=== PATIENT | female | born 1950 | race Caucasian/White ===

== ENCOUNTER 2023-09-26 14:46 | Emergency (ER) | payer MEDICARE, OTHER, SELFPAY ==
[2023-09-26 15:10] VITALS: BP 141/61; PULSE 60; RESP 18; TEMP 36.6; O2SAT 100
--- NOTE | 2023-09-26 15:19 | ED.SKABFB ---
HPI - Skin/Abscess/Foreign Bdy General Chief complaint: Skin/Abscess/Foreign Body Stated complaint: Poss yeast infection Time Seen by Provider: 09/26/23 15:19 Source: patient, RN notes reviewed and old records reviewed Mode of arrival: ambulatory Limitations: no limitations History of Present Illness HPI narrative: 73 year old female presents to express care with complaints of rash to bilateral groin areas that is red and tissue irritated with some itching and stinging burning sensation to the tissue for the past 4 days. Patient reports that the left side is worse that the right side. Patient is concerned because she is suppose to have total knee replacement on the 16 of October. Patient has not applied any OTC ointment to rash area. MD complaint: rash Onset (ago): day(s) (4) Location: genitals (bilateral groins) Severity scale (1-10): 7 Quality: burning and pruritic Treatments prior to arrival: none Related Data Home Medications Medication Instructions Recorded Confirmed benzonatate 100 mg capsule See Rx Instructions .Route .COMPLEX 09/26/23 09/26/23 celecoxib 100 mg capsule See Rx Instructions .Route .COMPLEX 09/26/23 09/26/23 escitalopram oxalate 10 mg tablet See Rx Instructions .Route .COMPLEX 09/26/23 09/26/23 famotidine 40 mg tablet 40 mg PO DAILY 09/26/23 09/26/23 hydrochlorothiazide 12.5 mg capsule 12.5 mg PO DAILY 09/26/23 09/26/23 losartan 100 mg tablet 100 mg PO DAILY 09/26/23 09/26/23 pantoprazole 40 mg tablet,delayed 40 mg PO DAILY 09/26/23 09/26/23 release tramadol 50 mg tablet See Rx Instructions .Route 09/26/23 09/26/23 .COMPLEX PRN Pain Review of Systems Review of Systems: CONSTITUTIONAL: Denies fever, chills, or sweats. CARDIOVASCULAR: Denies chest pain, palpitations, or edema. RESPIRATORY: Denies cough or dyspnea. SKIN: Reports red irritated skin to bilateral groin area that is itchy and alvarez MUSCULOSKELETAL: Denies joint pain or myalgia. NEUROLOGIC: Denies headache, numbness, or weakness. All systems reviewed & are unremarkable except as noted in HPI and below PMFSH Past Medical History Medical History (Updated 09/29/23 @ 12:08 by Danna De Dios NP) Anxiety Arthritis GERD (gastroesophageal reflux disease) Hyperlipidemia Hypertension Surgical History Surgical History (Updated 09/29/23 @ 12:00 by Danna De Dios NP) H/O skin graft multiple to legs following alvarez Social History Social History (Updated 09/29/23 @ 12:01 by Danna De Dios NP) Smoking status: Never smoker Alcohol intake: current Alcohol use details: rare social Substance use type: does not use Gender identity (if verbalized by the patient): Female Comments At time of signature, agree with nursing past medical, surgical, social and family history. There is no relevant family history pertinent to the presenting complaint Exam Narrative: GENERAL: Well-appearing, well-nourished, and in no acute distress. HEAD: Normocephalic, atraumatic. EYES: PERRLA, conjunctivae clear, and EOMI. ENT: Mucous membranes moist. Oropharynx without edema, erythema or lesions. NECK: Supple. No lymphadenopathy CHEST: Clear to auscultation. No respiratory distress.SAO2 100% on room air HEART: Regular rate and rhythm. SKIN: Warm, dry.? Patches of irregular red erythema with itching in groin areas with left greater that right,some burning reported no vesicles NEURO:? Alert and oriented x3. PSYCH: Normal mood and affect Course Course Emergency Course: Patient is aware of diagnosis, understands and agrees to treatment plan.? Anticipatory guidance given.? Patient agrees to follow-up as directed and is aware of reasons to seek care at the emergency department. Portions of this record may have been created with voice recognition software Level of Care: Express Care Visit Vital Signs Vital signs: Vital Signs Temperature 36.6 C 09/26/23 15:10 Pulse Rate 60 09/26/23 15:10 Respirator
== END 2023-09-26 15:35 | disposition home or self-care (01) ==
PROVIDERS: Emergency Provider Registered Nurse
DX: B37.2 Candidiasis of skin and nail (principal); K21.9 Gastro-esophageal reflux disease without esophagitis; E78.5 Hyperlipidemia, unspecified
CPT/HCPCS: 99213; G0463